=== PATIENT | female | born 1960 | race Caucasian/White ===

== ENCOUNTER 2017-12-12 08:48 | Emergency (ER) | payer MEDICARE, OTHER ==
[2017-12-12] MEDS: predniSONE 20 MG TAB PO (10:07)
[2017-12-12 10:54] LABS: ADD UMIC NO; UR ASCORBIC ACID 20 mg/dL (NEGATIVE); UR BILIRUBIN (Dip) NEGATIVE (NEGATIVE); UR BLOOD (Dip) NEGATIVE (NEGATIVE); UR CLARITY CLEAR (CLEAR); UR COLOR YELLOW (YELLOW); UR GLUCOSE (Dip) NEGATIVE (NEGATIVE); UR KETONES (Dip) NEGATIVE (NEGATIVE); UR LEUKOCYTE ESTERASE (Dip) NEGATIVE Leu/ul (NEGATIVE); UR NITRITE (Dip) NEGATIVE (NEGATIVE); UR SPECIFIC GRAVITY (Dip) 1.018 (1.003-1.030); UR TOTAL PROTEIN (Dip) NEGATIVE (NEGATIVE); UR UROBILINOGEN (Dip) NEGATIVE (NEGATIVE)
[2017-12-12] MEDS: ALBUTEROL 0.083% (NEB) 2.5 MG/3 ML AMP NEB (11:05)
[2017-12-12] MEDS: IPRATROPIUM (NEB) 0.5 MG/2.5 ML AMP NEB (11:05)
== END 2017-12-12 13:39 | disposition left against medical advice (07) ==
LOC: FTE 13:39
DX: R05 Cough (principal)
CPT/HCPCS: 36415; 71045; 81003; 87400; 94664; 99284-25